=== PATIENT | female | born 1965 | race African-American/Black ===

== ENCOUNTER 2019-01-19 04:50 | Emergency (ER) | payer BC, OTHER ==
[~2019-01-19] VITALS: Ht 175.3 cm; Wt 136.1 kg
[2019-01-19 04:55] VITALS: BP 143/90
--- NOTE | 2019-01-19 04:55 | NUR ---
ED Nurse Note: Pt brought in to ED from home via ambulance. Pt c/o cough x3 days and chest tightness. Pt has a hx of asthma. Pt is A&Ox4, denies chest pain. Spo2 96% on room air
--- NOTE | 2019-01-19 05:07 | Emergency Room Report ---
History of Present Illness General Chief Complaint: Asthma Source: Patient Present Illness HPI Is a 53-year-old female with a history of asthma/COPD. She still smokes. She presents with chief complaint of coughing and congestion for last week and a half. Getting worse today worse with inspiration. Worse with smoking. Worse with coughing. Coughing is productive phlegm. She said she is not using her inhaler because not working. Denies any other complaint. No nausea no vomiting. Has chest tightness because of coughing. Allergies: Coded Allergies: No Known Allergies (Unverified , 01/19/19) Patient History Past Medical History: see triage record, old chart reviewed, HTN, asthma, COPD Past Surgical History: other Pertinent Family History: none Last Menstrual Period: NA Now: No : 2 Para: 2 Immunizations: other Reviewed Nursing Documentation: PMH: Agreed; PSxH: Agreed Nursing Documentation-PM Past Medical History: No History, Except For Hx Asthma: Yes Review of Systems Eye: Denies: eye pain, blurred vision ENT: Denies: ear pain, nose congestion, throat swelling Respiratory: Reports: cough, shortness of breath, wheezing, sputum Cardiovascular: Denies: chest pain, palpitations Gastrointestinal: Denies: abdominal pain, diarrhea, nausea, vomiting Musculoskeletal: Denies: back pain, joint pain Skin: Denies: rash Neurological: Denies: headache, numbness Endocrine: Denies: increased thirst, increased urine Hematologic/Lymphatic: Denies: easy bruising All Other Systems: negative except mentioned in HPI Physical Exam Vital Signs Date Time Temp Pulse Resp B/P (MAP) Pulse Ox O2 Delivery O2 Flow Rate FiO2 01/19/19 04:50 97.9 91 18 143/90 (107) 97 Room Air vitals normal Sp02 EP Interpretation: reviewed, normal General Appearance: well appearing, no apparent distress, alert Head: normocephalic, atraumatic Eyes: bilateral eye PERRL, bilateral eye EOMI ENT: hearing grossly normal, normal pharynx Neck: full range of motion, supple, no meningismus Respiratory: chest non-tender, respiratory distress - Mild, accessory muscle use, rhonchi, wheezing Cardiovascular #1: regular rate, rhythm, no murmur Gastrointestinal: normal bowel sounds, non tender, no mass, no organomegaly, no bruit, non-distended Musculoskeletal: back normal, gait/station normal, normal range of motion Psychiatric: mood/affect normal Skin: warm/dry Medical Decision Making Diagnostic Impression: Primary Impression: Asthma exacerbation Qualified Codes: J45.21 - Mild intermittent asthma with (acute) exacerbation Additional Impression: Atypical pneumonia ER Course She presents with cough for the last week and a half. Chest x-ray unremarkable except for increased interstitial markings. This may be atypical pneumonia. She fell better with breathing treatment. Wheezing resolved. Still with coughing with inspiration. We'll discharge home with antibiotics since his been going on for about a week. No evidence of ACS, PE, dissection to name a few. No evidence of CHF. Last Vital Signs Date Time Temp Pulse Resp B/P (MAP) Pulse Ox O2 Delivery O2 Flow Rate FiO2 01/19/19 04:50 97.9 91 18 143/90 (107) 97 Room Air Status: improved Disposition: HOME, SELF-CARE Condition: Stable Scripts Codeine/Promethazine Hcl* (PROMETHAZINE-CODEINE SYRUP*) 118 Ml Syrup 5 ML ORAL Q6H PRN for For Cough, #120 ML 0 Refills Prov: Ralf Ryan MD 01/19/19 Azithromycin* (ZITHROMAX*) 250 Mg Tablet 250 MG ORAL DAILY, #6 TAB 0 Refills Take two tables once daily for 1 day, then one tablet once daily for 4 days. Prov: Ralf Ryan MD 01/19/19 Prednisone* (PREDNISONE*) 20 Mg Tablet 40 MG ORAL DAILY, #8 TAB Prov: Ralf Ryan MD 01/19/19 Additional Instructions: Stop smoking. Usually inhaler, 2 puffs every 4 hours as needed for coughing and wheezing. Follow-up with your DrGiancarlo in 2-3 days and recheck. Return if symptom worsen. Ralf Ryan MD Jan 19, 2019 05:07
[2019-01-19] MEDS ORDERED: Albuterol ud Inhalation HHN ONE (05:15)
[2019-01-19] MEDS ORDERED: Ipratropium 0.02% Inh Soln 2.5ml UD HHN ONE (05:15)
[2019-01-19] MEDS ORDERED: ZITHROMAX250 MG ORAL (05:58)
[2019-01-19] MEDS ORDERED: PREDNISONE20 MG ORAL (05:58)
[2019-01-19] MEDS ORDERED: PROMETHAZINE-C118 M1 ORAL (05:58)
--- NOTE | 2019-01-19 06:16 | NUR ---
ER DISCHARGE NOTE: Patient is cleared to be discharged per ERMD, pt is aox4, on room air, with stable vital signs. pt was given dc and prescription instructions, pt was able to verbalize understanding, pt id band and iv site removed without complications. pt is able to ambulate with steady gait. pt took all belongings.
[2019-01-19 06:17] VITALS: BP 148/98
--- NOTE | 2019-01-19 06:17 | NUR ---
ER DISCHARGE NOTE: Patient is cleared to be discharged per ERMD, pt is aox4, on room air, with stable vital signs. pt was given dc and prescription instructions, pt was able to verbalize understanding, pt id band removed. pt is able to ambulate with steady gait. pt took all belongings. Pt given taxi voucher
--- NOTE | 2019-01-19 11:53 | Diagnostic Imaging Report ---
Indication: Dyspnea Comparison: None A single view chest radiograph was obtained. Findings: Cardiomediastinal appearance is within normal limits for age and may be slightly prominent due to projection in lordotic angle. The lungs are clear. Pulmonary vascularity is appropriate. The diaphragmatic contour is smooth and costophrenic angles are sharp. No pleural effusions are identified. The bones are unremarkable. Impression: No acute findings
== END 2019-01-19 06:15 | disposition home or self-care (01) ==
LOC: EDBD 04:50 → EMR 05:09 → CANBEDREQ 06:00 → EMR 06:15
DX: J45.21 Mild intermittent asthma with (acute) exacerbation (principal); J18.9 Pneumonia, unspecified organism; F17.200 Nicotine dependence, unspecified, uncomplicated; I10 Essential (primary) hypertension; J44.9 Chronic obstructive pulmonary disease, unspecified
CPT/HCPCS: 71045; 94640; 94664; J7512; Z7502; 99284